=== PATIENT | female | born 1960 | race Caucasian/White ===

== ENCOUNTER → 2018-06-01 | Outpatient (CLI) | payer BC ==
--- NOTE | 2018-06-02 09:42 | RAD ---
PQRS Compliance Statement: One or more of the following individualized dose reduction techniques were utilized for this examination: 1. Automated exposure control 2. Adjustment of the mA and/or kV according to patient size 3. Use of iterative reconstruction technique CT CERVICAL SPINE WO CONTRAST Clinical Indication: CERVICALGIA Comparison: None. TECHNIQUE: Helical CT imaging of the cervical spine is performed without IV contrast. Findings: Straightening of normal cervical lordosis may be positional or due to muscle spasm. The facet joints are intact and mildly hypertrophic. There is degenerative endplate spurring of the cervical spine that is most advanced at C5/C6 and C6/C7. There is disc space narrowing and endplate irregularity of C6/C7. The other disc spaces are maintained. The craniovertebral junction is intact. Uncinate process hypertrophy of C5/C6 and C6/C7. No high-grade central canal stenosis is identified. There is moderate left neural foraminal narrowing of C3/C4, mild left neural foraminal narrowing of C4/C5, severe left and mild right neural foraminal narrowing of C5/C6, and severe left and mild right neural foraminal narrowing of C6/C7. Mild groundglass opacities in the lung apices. There are benign appearing bilateral cervical lymph nodes. There is no adenopathy. IMPRESSION: 1. Degenerative spondylosis is most advanced at C5/C6 and C6/C7. 2. There is neural foraminal narrowing on the left as detailed above. Electronically signed by: Boris Melvin MD (06/02/2018 9:39 AM) [id number]
--- NOTE | 2018-06-02 14:43 | RAD ---
Three-view lumbar spine series Clinical indications: Patient fell 60 days ago. Low back pain. FINDINGS: The transverse processes are intact. No compression fracture or discitis or lytic process or anterolisthesis is evident. There is moderate degenerative endplate spurring without significant disc space narrowing throughout the lumbar spine. There is mild degenerative disc space narrowing and endplate spurring at L5-S1. IMPRESSION: Degenerative lumbar spondylosis. Electronically signed by: Hammad Medina MD (06/02/2018 2:40 PM) [place] [id number]
== END | disposition home or self-care (01) ==
LOC: CT 13:47
PROVIDERS: ATTEND Specialist
DX: M47.812 Spondylosis without myelopathy or radiculopathy, cervical region (principal); M48.02 Spinal stenosis, cervical region; M46.02 Spinal enthesopathy, cervical region; M47.816 Spondylosis without myelopathy or radiculopathy, lumbar region; M48.07 Spinal stenosis, lumbosacral region
CPT/HCPCS: 72100; 72125